=== PATIENT | male | born 1985 | race American Indian/Alaskan Native ===

== ENCOUNTER 2016-11-20 22:23 | Emergency (ER) | payer MEDICARE ==
[2016-11-20 22:44] VITALS: BP 119/85
[2016-11-21] MEDS ORDERED: NORCO 5/325 PO ONE (03:10)
[2016-11-21] MEDS ORDERED: DECADRON PO ONE (03:11)
--- NOTE | 2016-11-21 03:35 | Emergency Department Report ---
ED ENT HPI - General Chief complaint: Neck Pain/Injury Stated complaint: THROAT PAIN Time Seen by Provider: 11/21/16 03:09 Source: patient Mode of arrival: Ambulatory Limitations: No Limitations - History of Present Illness Initial comments: 31 y/o male comes in for complaint of sore throat difficulty swallowing since Thursday. Patient reports that since Thursday has not been able to swallow unable to sleep at night pain is getting worse pain does not radiate anywhere. Her chills nausea vomiting MD complaint: sore throat - Related Data Previous Rx's Medication Instructions Recorded Last Taken Type Naproxen [Naprosyn TAB] 500 mg PO BID #20 tablet 11/21/16 Unknown Rx methylPREDNISolone [Medrol Dose 8 mg PO QAM #7 tab.ds.pk 11/21/16 Unknown Rx Keanu] Allergies Allergy/AdvReac Type Severity Reaction Status Date / Time No Known Allergies Allergy Verified 07/02/15 16:46 ED Dental HPI - General Chief complaint: Neck Pain/Injury Stated complaint: THROAT PAIN Time Seen by Provider: 11/21/16 03:09 Source: patient Mode of arrival: Ambulatory Limitations: No Limitations - Related Data Previous Rx's Medication Instructions Recorded Last Taken Type Naproxen [Naprosyn TAB] 500 mg PO BID #20 tablet 11/21/16 Unknown Rx methylPREDNISolone [Medrol Dose 8 mg PO QAM #7 tab.ds.pk 11/21/16 Unknown Rx Keanu] Allergies Allergy/AdvReac Type Severity Reaction Status Date / Time No Known Allergies Allergy Verified 07/02/15 16:46 ED Review of Systems ROS: Stated complaint: THROAT PAIN Other details as noted in HPI Constitutional: denies: chills, fever ENT: throat pain Respiratory: denies: cough, shortness of breath Cardiovascular: denies: chest pain Gastrointestinal: denies: nausea, vomiting ED Past Medical Hx - Past Medical History Hx Hypertension: No Hx CVA: No Hx Heart Attack/AMI: No Hx Congestive Heart Failure: No Hx Diabetes: No Hx Deep Vein Thrombosis: No Hx Pulmonary Embolism: No Hx GERD: No Hx Liver Disease: No Hx Renal Disease: No Hx Sickle Cell Disease: No Hx Arthritis: No Hx Headaches / Migraines: No Hx Seizures: No Hx Asthma: No Hx Tuberculosis: No Hx Dementia: No Hx HIV: No Additional medical history: denies - Surgical History Hx Coronary Stent: No Hx Open Heart Surgery: No Hx Internal Defibrillator: No Hx Cholecystectomy: No Hx Appendectomy: No Additional Surgical History: denies - Social History Smoking Status: Current Every Day Smoker Substance Use Type: Alcohol - Medications Home Medications: Home Medications Medication Instructions Recorded Confirmed Last Taken Type Naproxen [Naprosyn TAB] 500 mg PO BID #20 tablet 11/21/16 Unknown Rx methylPREDNISolone [Medrol Dose 8 mg PO QAM #7 tab.ds.pk 11/21/16 Unknown Rx Keanu] ED Physical Exam - General Limitations: No Limitations General appearance: alert, in no apparent distress - Head Head exam: Present: atraumatic, normocephalic - Eye Eye exam: Present: normal appearance, PERRL, EOMI - ENT ENT exam: Present: mucous membranes moist - Expanded ENT Exam Expanded Mouth exam: Absent: trismus, muffled voice Teeth exam: Present: dental caries Throat exam: Positive: tonsillar erythema - Neck Neck exam: Present: normal inspection, tenderness - Respiratory Respiratory exam: Present: normal lung sounds bilaterally. Absent: respiratory distress, wheezes, rales - Cardiovascular Cardiovascular Exam: Present: regular rate, normal rhythm, normal heart sounds ED Course Vital Signs 11/20/16 22:33 Temperature 99.3 F Pulse Rate 69 Blood Pressure 119/85 O2 Sat by Pulse 100 Oximetry - Reevaluation(s) Reevaluation #1: 11/21/16 03:57 He reports he feels much better after having the Decadron and Cohutta. He feels he is able to go home. ED Medical Decision Making - Medical Decision Making Evaluated by this provider in fast track. Rapid strep sent out came back negative. We'll treat patient for tonsillitis. We'll put him on a Medrol Dosepak and Cohutta for pain. If symptoms get worse have him follow-up a primary care provider. Critical care attestation.: If time is entered above; I have spent that time in minutes in the direct care of this critically ill patient, excluding procedure time. ED Disposition Clinical Impression: Tonsillitis Disposition: DISCHARGED TO HOME OR SELFCARE Is pt being admited?: No Does the pt Need Aspirin: No Condition: Stable Instructions: Tonsillitis (ED) Additional Instructions: Complete his steroid pack use naproxen when necessary for pain symptoms get worse follow-up with her primary care provider or the emergency room Prescriptions: methylPREDNISolone [Medrol Dose Keanu] 8 mg PO QAM #7 tab.ds.pk Naproxen [Naprosyn TAB] 500 mg PO BID #20 tablet Referrals: RADHA FARIA MD [Primary Care Provider] - 3-5 Days Forms: Work/School Release Form(ED)
== END 2016-11-21 04:15 | disposition home or self-care (01) ==
LOC: ED 22:23
DX: J03.90 Acute tonsillitis, unspecified (principal); F17.200 Nicotine dependence, unspecified, uncomplicated
CPT/HCPCS: 87116; 87430; 99283; J8540

== ENCOUNTER 2016-11-25 12:24 | Emergency (ER) | payer MEDICARE ==
[2016-11-25] MEDS ORDERED: TYLENOL ONE (12:44)
[2016-11-25] MEDS: TYLENOL PO ONE (13:00)
[2016-11-25 13:48] LABS: Basophils % (Auto) 0.4 % (0.0-1.8); Hematocrit 37.4 % (35.5-45.6); Hemoglobin 12.2 gm/dl (11.8-15.2); Mean Corpuscular HGB Conc 33 % (32-34); Mean Corpuscular Hemoglobin 29 pg (28-32); Mean Corpuscular Volume 88 fl (84-94); Platelet Count 201 K/mm3 (140-440); Red Blood Count 4.24 M/mm3 (3.65-5.03); Red Cell Distribution Width 14.8 % (13.2-15.2); White Blood Count 14.2 K/mm3 (4.5-11.0)
[2016-11-25 13:59] LABS: INR 1.11 (0.87-1.13); Partial Thromboplastin Time 26.5 Sec. (24.2-36.6)
[2016-11-25] MEDS ORDERED: VANCOMYCIN PHARMACY TO DOSE IV SCH (14:00)
[2016-11-25] MEDS: CLEOCIN 900 MG/50 mL 900 MG/50 ML BAG IV ONE (14:08)
[2016-11-25] MEDS: NACL 0.9% 1000 ML 1,000 ML IV ONE (14:08)
--- NOTE | 2016-11-25 14:18 | XRay Report ---
AP CHEST: HISTORY: Fever, sepsis AP view of the chest demonstrates a normal mediastinal and cardiac contour with clear lungs and normal bony and soft tissue structures. IMPRESSION: Unremarkable AP chest.
[2016-11-25 14:19] LABS: Alanine Aminotransferase 29 units/L (7-56); Albumin 3.4 g/dL (3.9-5); Albumin/Globulin Ratio 0.9 %; Alkaline Phosphatase 63 units/L (35-129); Anion Gap 16 mmol/L; Bilirubin,Total 0.4 mg/dL (0.1-1.2); Blood Urea Nitrogen 8 mg/dL (9-20); Calcium 8.7 mg/dL (8.4-10.2); Carbon Dioxide 29 mmol/L (22-30); Chloride 94.5 mmol/L (98-107); Glucose 137 mg/dL (75-100); Potassium 3.6 mmol/L (3.6-5.0); Sodium 136 mmol/L (137-145); Total Protein 7.2 g/dL (6.3-8.2)
[2016-11-25 14:53] LABS: Bilirubin,Direct < 0.2 mg/dL (0-0.2)
[2016-11-25] MEDS: VANCOMYCIN VIAL 1,500 MG in NACL 0.9% 500 ML 500 ML IV ONE (15:07)
--- NOTE | 2016-11-25 15:14 | XRay Report ---
AP AND LATERAL SOFT TISSUES OF THE NECK: The contour of the upper airway appears within normal limits. The epiglottis is not enlarged. No prevertebral soft tissue swelling is apparent. No mass density or foreign body is evident. IMPRESSION: Normal study.
--- NOTE | 2016-11-25 15:43 | Cat Scan Report ---
CT NECK WITH CONTRAST: HISTORY: Swelling, pain, deep neck infection. TECHNIQUE: Helical CT following IV contrast. Sagittal and coronal reformatted images. FINDINGS: There is an irregular submental abscess measuring up to 5.4 x 3.3 cm in axial plane. Reactive submental lymph nodes measure up to 1.5 cm. The parotid and submandibular glands are normal. The carotid sheaths are intact. The thyroid gland is normal. The glottic structures are unremarkable. The airway is patent. Strap musculature is unremarkable. Hyoid bone and thyroid cartilage are intact. IMPRESSION: Submental abscess.
--- NOTE | 2016-11-25 16:46 | Emergency Department Report ---
ED General Adult HPI - General Chief complaint: Dental/Oral Stated complaint: NECK SWELLING Time Seen by Provider: 11/25/16 12:58 Source: patient Mode of arrival: Ambulatory Limitations: No Limitations - History of Present Illness Initial comments: Patient was apparently seen 2 days ago and given Decadron and describes Solu- Medrol for "tonsillitis". I do not believe he was treated with antibiotics. He was additionally noted to have dental caries. He can tell me that he's been having problems with his teeth for quite some time especially the left lower molar area. He states that since yesterday he has not been able to open his mouth to eat. He doesn't have any difficulty with his secretions. He denies any difficulty in breathing. He has swelling in the submandibular area of his neck. He does not complain of fever or chills. The patient presents to this facility and is noted to have temperature 102.4. -: Gradual, days(s) Severity scale (0 -10): 0 Quality: other (submental area and left lower molar) Consistency: intermittent Improves with: none Worsens with: none Associated Symptoms: other (can't open mouth) Treatments Prior to Arrival: none - Related Data Previous Rx's Medication Instructions Recorded Last Taken Type Naproxen [Naprosyn TAB] 500 mg PO BID #20 tablet 11/21/16 Unknown Rx methylPREDNISolone [Medrol Dose 8 mg PO QAM #7 tab.ds.pk 11/21/16 Unknown Rx Keanu] Allergies Allergy/AdvReac Type Severity Reaction Status Date / Time No Known Allergies Allergy Verified 07/02/15 16:46 ED Review of Systems ROS: Stated complaint: NECK SWELLING Other details as noted in HPI Constitutional: denies: chills, fever Eyes: denies: eye pain, eye discharge, vision change ENT: as per HPI, throat pain, dental pain. denies: ear pain Respiratory: denies: cough, shortness of breath, wheezing Cardiovascular: denies: chest pain, palpitations Endocrine: no symptoms reported Gastrointestinal: denies: abdominal pain, nausea, diarrhea Genitourinary: denies: urgency, dysuria Musculoskeletal: denies: back pain, joint swelling, arthralgia Skin: denies: rash, lesions Neurological: denies: headache, weakness, paresthesias Psychiatric: denies: anxiety, depression Hematological/Lymphatic: denies: easy bleeding, easy bruising ED Past Medical Hx - Past Medical History Previous Medical History?: Yes Hx Hypertension: No Hx CVA: No Hx Heart Attack/AMI: No Hx Congestive Heart Failure: No Hx Diabetes: No Hx Deep Vein Thrombosis: No Hx Pulmonary Embolism: No Hx GERD: No Hx Liver Disease: No Hx Renal Disease: No Hx Sickle Cell Disease: No Hx Arthritis: No Hx Headaches / Migraines: No Hx Seizures: No Hx Asthma: No Hx Tuberculosis: No Hx Dementia: No Hx HIV: No Additional medical history: denies - Surgical History Past Surgical History?: Yes Hx Coronary Stent: No Hx Open Heart Surgery: No Hx Internal Defibrillator: No Hx Cholecystectomy: No Hx Appendectomy: No Additional Surgical History: denies - Social History Smoking Status: Never Smoker - Medications Home Medications: Home Medications Medication Instructions Recorded Confirmed Last Taken Type Naproxen [Naprosyn TAB] 500 mg PO BID #20 tablet 11/21/16 Unknown Rx methylPREDNISolone [Medrol Dose 8 mg PO QAM #7 tab.ds.pk 11/21/16 Unknown Rx Keanu] ED Physical Exam - General Limitations: No Limitations General appearance: alert, in no apparent distress - Head Head exam: Present: atraumatic, normocephalic - Eye Eye exam: Present: normal appearance - ENT ENT exam: Present: other (partially edentulous and grossly carious dentition visualized in the left lower mandibular area). Absent: normal exam (finger breath mouth opening positive trismus handling secretions normally) - Neck Neck exam: Present: normal inspection - Respiratory Respiratory exam: Present: normal lung sounds bilaterally. Absent: respiratory distress - Cardiovascular Cardiovascular Exam: Present: regular rate, normal rhythm. Absent: systolic murmur, diastolic murmur, rubs, gallop - GI/Abdominal GI/Abdominal exam: Present: soft, normal bowel sounds. Absent: distended, tenderness, guarding, rebound, rigid - Rectal Rectal exam: Present: deferred - Extremities Exam Extremities exam: Present: normal inspection - Back Exam Back exam: Present: normal inspection - Neurological Exam Neurological exam: Present: alert, oriented X3, CN II-XII intact. Absent: motor sensory deficit - Psychiatric Psychiatric exam: Present: normal affect, normal mood - Skin Skin exam: Present: warm, dry, intact, normal color. Absent: rash ED Course Vital Signs 11/25/16 11/25/16 11/25/16 12:43 12:56 15:46 Temperature 102.4 F H 100.4 F H Pulse Rate 77 76 Respiratory 16 16 16 Rate Blood Pressure 159/90 121/76 [Left] O2 Sat by Pulse 99 98 99 Oximetry - Reevaluation(s) Reevaluation #1: The patient remained stable. He was treated with IV clindamycin and vancomycin. 11/25/16 16:53 ED Medical Decision Making - Lab Data Result diagrams: 11/25/16 13:27 11/25/16 13:27 Laboratory Results - last 24 hr 11/25/16 11/25/16 11/25/16 13:27 13:27 13:27 WBC 14.2 H RBC 4.24 Hgb 12.2 Hct 37.4 MCV 88 MCH 29 MCHC 33 RDW 14.8 Plt Count 201 Lymph % (Auto) 6.8 L [place] % (Auto) 13.1 H Eos % (Auto) 0.0 Baso % (Auto) 0.4 Lymph # 1.0 L [place] # 1.9 H Eos # 0.0 Baso # 0.1 Seg Neutrophils % 79.7 H Seg Neutrophils # 11.3 H PT 14.2 INR 1.11 APTT 26.5 Sodium Potassium Chloride Carbon Dioxide Anion Gap BUN Creatinine Estimated GFR BUN/Creatinine Ratio Glucose Lactic Acid 2.0 Calcium Total Bilirubin Direct Bilirubin AST ALT Alkaline Phosphatase Total Protein Albumin Albumin/Globulin Ratio 11/25/16 13:27 WBC RBC Hgb Hct MCV MCH MCHC RDW Plt Count Lymph % (Auto) J[place] % (Auto) Eos % (Auto) Baso % (Auto) Lymph # Jerauld # Eos # Baso # Seg Neutrophils % Seg Neutrophils # PT INR APTT Sodium 136 L Potassium 3.6 Chloride 94.5 L Carbon Dioxide 29 Anion Gap 16 BUN 8 L Creatinine 1.0 Estimated GFR > 60 BUN/Creatinine Ratio 8.00 Glucose 137 H Lactic Acid Calcium 8.7 Total Bilirubin 0.4 Direct Bilirubin < 0.2 AST 25 ALT 29 Alkaline Phosphatase 63 Total Protein 7.2 Albumin 3.4 L Albumin/Globulin Ratio 0.9 - Radiology Data Radiology results: report reviewed interpreted by me: History airway film was obtained. I spoke to ENT at [facility] concerning the transfer this patient as we do not have ENT surgical or oral surgical backup. A CT was then in progress. I called him back with the CT report which demonstrated a 5 x 3 cm submental abscess. The airway is stable. Dr. Kelsey was kind enough to accept this patient emergency department to emergency department transfer [facility]. Critical care attestation.: If time is entered above; I have spent that time in minutes in the direct care of this critically ill patient, excluding procedure time. ED Disposition Clinical Impression: Submental abscess Disposition: DC/TX ANOTHER TYPE HEALTHCARE Is pt being admited?: No Does the pt Need Aspirin: No Condition: Stable Referrals: PRIMARY CARE, [Primary Care Provider] - 3-5 Days Time of Disposition: 16:53
[2016-11-25] MEDS ORDERED: MORPHINE ONE (17:36)
[2016-11-25] MEDS ORDERED: ZOFRAN ONE (17:36)
[2016-11-25] MEDS: MORPHINE IV ONE (17:46)
[2016-11-25] MEDS: ZOFRAN IV ONE (17:46)
[2016-11-25 18:55] VITALS: BP 116/78
[2016-11-25] MEDS: MOTRIN PO ONE (19:18)
[2016-11-26] MEDS ORDERED: VANCOMYCIN/NS 1 GM/250 ML 1 GM/250 ML BAG IV SCH (05:00)
== END 2016-11-25 19:24 | disposition other institution (70) ==
LOC: ED 12:24
DX: L02.01 Cutaneous abscess of face (principal)
CPT/HCPCS: 36415; 70360; 70491; 71010; 80048; 80074; 82140; 85025; 85610; 85730; 87040; 96365; 96366; 96367; 96375; 99285; J2270; J2405; J3370; J7030; J7040; Q9967

== ENCOUNTER 2018-01-05 12:39 | Emergency (ER) | payer MEDICARE ==
[2018-01-05 13:38] LABS: Basophils % (Auto) 0.4 % (0.0-1.8); Eosinophils % (Auto) 0.1 % (0.0-4.3); Hematocrit 42.9 % (35.5-45.6); Hemoglobin 14.3 gm/dl (11.8-15.2); Lymphocytes # (Auto) 1.2 K/mm3 (1.2-5.4); Lymphocytes % (Auto) 18.3 % (13.4-35.0); Mean Corpuscular HGB Conc 33 % (32-34); Mean Corpuscular Hemoglobin 30 pg (28-32); Mean Corpuscular Volume 89 fl (84-94); Monocytes # (Auto) 0.7 K/mm3 (0.0-0.8); Monocytes % (Auto) 10.6 % (0.0-7.3); Platelet Count 151 K/mm3 (140-440); Red Blood Count 4.81 M/mm3 (3.65-5.03); Red Cell Distribution Width 15.7 % (13.2-15.2)
--- NOTE | 2018-01-05 13:45 | Emergency Department Report ---
HPI - General Time Seen by Provider: 01/05/18 12:47 - HPI HPI: 32-year-old -[place] male presents to the emergency department via EMS from his [facility] with some suicidal ideations and for a mental health evaluation. The patient admits to history of bipolar disorder but I am unsure whether or not the patient is taking his medications. He says that people are hiding the medications from him but then also says "sometimes they are and sometimes they're not." The patient says "I want to hurt myself because there are people that are trying to hurt me." He describes these people as the other residents of the [facility]. He says that sometimes he will find that they are stealing things from his room. The patient admits that he has a temper problem. He says that people are taking advantage of his kindness and "sending me over the edge." He admits to intermittent auditory and visual hallucinations. The patient's girlfriend later came to the hospital and gave some further information. It turns out that the patient does not live that any type of usp but has lived with the girlfriend and her family over the past 3 years. She says that the patient began having an argument with his girlfriends son as they were "wearing his boots." Patient apparently began having a temper tantrum. He then started making threats towards the girlfriends son and then called EMS on himself. ED Past Medical Hx - Past Medical History Previous Medical History?: Yes Hx Hypertension: No Hx CVA: No Hx Heart Attack/AMI: No Hx Congestive Heart Failure: No Hx Diabetes: No Hx Deep Vein Thrombosis: No Hx Pulmonary Embolism: No Hx GERD: No Hx Liver Disease: No Hx Renal Disease: No Hx Sickle Cell Disease: No Hx Arthritis: No Hx Headaches / Migraines: No Hx Seizures: No Hx Asthma: No Hx Tuberculosis: No Hx Dementia: No Hx HIV: No Additional medical history: Psych hx. - Surgical History Hx Coronary Stent: No Hx Open Heart Surgery: No Hx Internal Defibrillator: No Hx Cholecystectomy: No Hx Appendectomy: No Additional Surgical History: denies - Social History Smoking Status: Current Some Day Smoker Substance Use Type: None - Medications Home Medications: Home Medications Medication Instructions Recorded Confirmed Last Taken Type Naproxen [Naprosyn TAB] 500 mg PO BID #20 tablet 11/21/16 Unknown Rx methylPREDNISolone [Medrol Dose 8 mg PO QAM #7 tab.ds.pk 11/21/16 Unknown Rx Keanu] ED Review of Systems ROS: Stated complaint: MH EVAL Other details as noted in HPI Comment: All other systems reviewed and negative Constitutional: denies: chills, fever Eyes: denies: eye pain, eye discharge, vision change ENT: denies: ear pain, throat pain Respiratory: denies: cough, shortness of breath, wheezing Cardiovascular: denies: chest pain, palpitations Gastrointestinal: denies: abdominal pain, nausea, diarrhea Genitourinary: denies: urgency, dysuria Musculoskeletal: denies: back pain, joint swelling, arthralgia Skin: denies: rash, lesions Neurological: denies: headache, weakness, paresthesias Psychiatric: auditory hallucinations, visual hallucinations, suicidal thoughts Physical Exam - Physical Exam Vital Signs: Vital Signs 01/05/18 12:40 Temperature 97.9 F Pulse Rate 60 Respiratory 20 Rate Blood Pressure 122/83 Blood Pressure 122/83 [Right] O2 Sat by Pulse 97 Oximetry Physical Exam: GENERAL: The patient is well-developed well-nourished. HENT: Normocephalic. Atraumatic. Patient has moist mucous membranes. EYES: Extraocular motions are intact. Pupils equal reactive to light bilaterally. NECK: Supple. Trachea is midline. CHEST/LUNGS: Clear to auscultation. There is no respiratory distress noted. HEART/CARDIOVASCULAR: Regular. There is no tachycardia. There is no murmur. ABDOMEN: Abdomen is soft, nontender. Patient has normal bowel sounds. There is no abdominal distention. SKIN: Skin is warm and dry. NEURO: The patient is awake, alert. The patient is cooperative. The patient has no focal neurologic deficits. The patient has normal speech. MUSCULOSKELETAL: There is no tenderness or deformity. There is no limitation range of motion. There is no evidence of acute injury. PSYCH: The patient has some pressured speech. At times he is tearful. ED Course Vital Signs 01/05/18 12:40 Temperature 97.9 F Pulse Rate 60 Respiratory 20 Rate Blood Pressure 122/83 Blood Pressure 122/83 [Right] O2 Sat by Pulse 97 Oximetry ED Medical Decision Making - Lab Data Result diagrams: 01/05/18 13:22 01/05/18 13:22 - Medical Decision Making 32-year-old male presents to the emergency department with what appears to be some suicidal ideations and acute psychosis. It is unknown whether patient truly has a diagnosis of bipolar disorder or if this is some sequela of some type of developmental delay. However the patient actively admits to some suicidal ideations, intermittent hallucinations. The girlfriend later came by and expressed that the patient had been making some threats towards others. For all these reasons patient has been made a 1013 and will require inpatient psychiatric treatment. The labs thus far are unremarkable. We do not yet have a urinalysis but I do not feel that any results from a urinalysis or urine drug screen would alter the plan for inpatient psychiatric admission. He does not appear acutely intoxicated. If the patient has a urinary tract infection, he will be written for antibiotics. Otherwise I feel the patient is medically cleared for psychiatric placement. - Differential Diagnosis Bipolar, schizophrenia, schizoaffective Critical Care Time: No Critical care attestation.: If time is entered above; I have spent that time in minutes in the direct care of this critically ill patient, excluding procedure time. ED Disposition Clinical Impression: Suicidal ideations, Acute psychosis Disposition: [id number]/TX-[id number] PSY HOSP/PSY UNIT Is pt being admited?: No Condition: Stable Time of Disposition: 14:53
[2018-01-05 13:57] LABS: BUN/Creatinine Ratio 12; Blood Urea Nitrogen 13 mg/dL (9-20); Hemolysis Index 5
[2018-01-05] MEDS ORDERED: TYLENOL PO PRN (16:35)
[2018-01-05 17:20] LABS: Bilirubin,Urine NEG (Negative); Blood,Urine NEG (Negative); Color,Urine Yellow (Yellow); Mucus,Urine 2+ /HPF; Protein,Urine <15 mg/dL mg/dL (Negative); Urobilinogen,Urine < 2.0 mg/dL (<2.0)
[2018-01-05 17:32] LABS: Amphetamine Screen,Urine PRESUMPTIVE NEGATIVE; Benzodiazepines Screen,Urine PRESUMPTIVE NEGATIVE; Cocaine Screen,Urine PRESUMPTIVE NEGATIVE; Methadone Screen,Urine PRESUMPTIVE NEGATIVE; Opiate Screen,Urine PRESUMPTIVE NEGATIVE
[2018-01-05 17:43] LABS: Cannabinoid Screen,Urine PRESUMPTIVE POSITIVE
[2018-01-05] MEDS ORDERED: ROCEPHIN IM ONE (18:09)
[2018-01-05] MEDS ORDERED: ZITHROMAX PO ONE (18:09)
[2018-01-05] MEDS ORDERED: XYLOCAINE 1% MPF 5 mL INFILTRATI ONE (18:09)
[2018-01-05 19:56] VITALS: BP 105/75
[2018-01-05] MEDS ORDERED: BACTRIM DS PO SCH (22:00)
== END 2018-01-05 19:54 ==
LOC: ED 12:39
DX: F23 Brief psychotic disorder (principal); F17.200 Nicotine dependence, unspecified, uncomplicated; Z79.899 Other long term (current) drug therapy
CPT/HCPCS: 36415; 80048; 80307; 81001; 85025; 96372; 99285; G0480; J0696; 80320

== ENCOUNTER 2019-03-13 22:58 | Emergency (ER) | payer MEDICARE ==
[2019-03-13 23:38] LABS: Basophils % (Auto) 0.3 % (0.0-1.8); Eosinophils # (Auto) 0.2 K/mm3 (0.0-0.4); Eosinophils % (Auto) 2.5 % (0.0-4.3); Hematocrit 39.1 % (35.5-45.6); Hemoglobin 13.3 gm/dl (11.8-15.2); Lymphocytes # (Auto) 2.2 K/mm3 (1.2-5.4); Lymphocytes % (Auto) 34.3 % (13.4-35.0); Mean Corpuscular HGB Conc 34 % (32-34); Mean Corpuscular Volume 91 fl (84-94); Monocytes # (Auto) 0.6 K/mm3 (0.0-0.8); Monocytes % (Auto) 10.2 % (0.0-7.3); Platelet Count 160 K/mm3 (140-440); Red Blood Count 4.31 M/mm3 (3.65-5.03); Red Cell Distribution Width 15.8 % (13.2-15.2)
[2019-03-14 00:01] LABS: Alanine Aminotransferase 16 units/L (7-56); Albumin 3.5 g/dL (3.9-5); BUN/Creatinine Ratio 11; Blood Urea Nitrogen 13 mg/dL (9-20); Calcium 8.7 mg/dL (8.4-10.2); Hemolysis Index 3
[2019-03-14 00:16] LABS: Bilirubin,Urine NEG (Negative); Blood,Urine NEG (Negative); Calcium Oxalate Crystals,Urine 1+; Color,Urine Yellow (Yellow); Mucus,Urine 3+ /HPF; Protein,Urine <15 mg/dL mg/dL (Negative); WBC,Urine < 1.0 /HPF (0.0-6.0)
[2019-03-14] MEDS ORDERED: LEVSIN SL SL ONE (02:07)
[2019-03-14] MEDS ORDERED: ZOFRAN ODT PO STA (02:07)
--- NOTE | 2019-03-14 03:09 | XRay Report ---
PROCEDURE: XR CHEST ROUTINE 2V TECHNIQUE: PA and lateral chest radiographs were obtained. HISTORY: cough COMPARISONS: None. FINDINGS: Heart: Normal. Mediastinum/Vessels: Normal. Lungs/Pleural space: Normal. Bony thorax: No acute osseous abnormality. IMPRESSION: Normal examination. This document is electronically signed by Lucy Silva DO., Mar 14 2019 03:07:46 AM ET
[2019-03-14 03:27] LABS: Bacteria,Urine 1+ /HPF (Negative); Bilirubin,Urine NEG (Negative); Blood,Urine NEG (Negative); Calcium Oxalate Crystals,Urine 1+; Color,Urine Yellow (Yellow); Mucus,Urine 3+ /HPF; Protein,Urine <15 mg/dL mg/dL (Negative); Urobilinogen,Urine < 2.0 mg/dL (<2.0)
--- NOTE | 2019-03-14 04:22 | Cat Scan Report ---
PROCEDURE: CT ABDOMEN PELVIS W CON TECHNIQUE: Computerized axial tomography of the abdomen and pelvis was performed after the IV inject ion of iodinated nonionic contrast. CT DOSE LENGTH PRODUCT: mGycm HISTORY: Lower ABD Pain COMPARISONS: None . FINDINGS: The study is limited given the small amount of body fat and lack of oral contrast. The lung bases are clear. Pleural fluid is not seen. The liver, gallbladder, biliary tree, pancreas, spleen, and adrenal glands appear normal. The kidneys enhance normally. There is no evidence of hydronephrosis. The abdominal aorta is normal in caliber. The portal vein enhances normally. The bowel loops are not distended. The appendix is not seen. There is a small amount of free fluid in the posterior aspect of the pelvis. Also in the pelvis is generalized mucosal prominence of the rect um with effacement of the perirectal fat. Proctitis cannot be excluded. There is no evidence of adeno julio césar. The skeletal structures reveal a thoracolumbar dextroscoliosis. . IMPRESSION: Limited study given the lack of body fat and lack of oral contrast. Generalized mucosal prominence in the rectum with effacement of the perirectal fat. Proctitis cannot be excluded. No evidence of bowel obstruction or ileus otherwise. Small amount of free fluid in the posterior aspect of the pelvis. Appendix is not seen. If there is concern about appendicitis right lower quadrant sonography might be helpful for further evaluation. This document is electronically signed by Tung Grossman MD., Mar 14 2019 04:20:05 AM ET
--- NOTE | 2019-03-14 05:03 | Emergency Department Report ---
ED Abdominal Pain HPI - General Chief Complaint: Abdominal Pain Stated Complaint: ABDOMINAL PAIN Time Seen by Provider: 03/14/19 02:05 Source: patient, family Mode of arrival: Ambulatory Limitations: No Limitations - History of Present Illness MD Complaint: abdominal pain -: days(s) (1.5) Location: periumbilical, R flank Radiation: epigastric Quality: aching, dull Consistency: constant Improves With: nothing Worsens With: nothing Associated Symptoms: denies other symptoms. denies: vomiting, diarrhea, constipation, hematemesis, hematochezia, hematuria, anorexia, syncope - Related Data Previous Rx's Medication Instructions Recorded Last Taken Type Naproxen [Naprosyn TAB] 500 mg PO BID #20 tablet 11/21/16 Unknown Rx methylPREDNISolone [Medrol Dose 8 mg PO QAM #7 tab.ds.pk 11/21/16 Unknown Rx Keanu] ALBUTEROL Inhaler(NF) [VENTOLIN 2 puff IH Q4HR PRN #1 inha 10/26/18 Unknown Rx Inhaler(NF)] Ciprofloxacin HCl [Ciprofloxacin 500 mg PO Q12HR #28 tab 03/14/19 Unknown Rx TAB] Hyoscyamine Subl [Levsin Sl 0.125 0.125 mg SL Q6HR PRN #20 tab 03/14/19 Unknown Rx TAB] metroNIDAZOLE [Flagyl] 500 mg PO BID #28 tab 03/14/19 Unknown Rx Allergies Allergy/AdvReac Type Severity Reaction Status Date / Time No Known Allergies Allergy Verified 07/02/15 16:46 ED Review of Systems ROS: Stated complaint: ABDOMINAL PAIN Other details as noted in HPI Constitutional: denies: chills, fever Eyes: denies: eye pain, eye discharge, vision change ENT: denies: ear pain, throat pain Respiratory: denies: cough, shortness of breath, wheezing Cardiovascular: denies: chest pain, palpitations Endocrine: no symptoms reported Gastrointestinal: abdominal pain, nausea. denies: diarrhea Genitourinary: denies: urgency, dysuria Musculoskeletal: denies: back pain, joint swelling, arthralgia Skin: denies: rash, lesions Neurological: denies: headache, weakness, paresthesias Psychiatric: denies: anxiety, depression Hematological/Lymphatic: denies: easy bleeding, easy bruising ED Past Medical Hx - Past Medical History Hx Hypertension: No Hx CVA: No Hx Heart Attack/AMI: No Hx Congestive Heart Failure: No Hx Diabetes: No Hx Deep Vein Thrombosis: No Hx Pulmonary Embolism: No Hx GERD: No Hx Liver Disease: No Hx Renal Disease: No Hx Sickle Cell Disease: No Hx Arthritis: No Hx Headaches / Migraines: No Hx Seizures: No Hx Psychiatric Treatment: Yes (bipolar) Hx Asthma: No Hx Tuberculosis: No Hx Dementia: No Hx HIV: No Additional medical history: Psych hx. - Surgical History Hx Coronary Stent: No Hx Open Heart Surgery: No Hx Internal Defibrillator: No Hx Cholecystectomy: No Hx Appendectomy: No Additional Surgical History: denies - Social History Smoking Status: Never Smoker Substance Use Type: None - Medications Home Medications: Home Medications Medication Instructions Recorded Confirmed Last Taken Type Naproxen [Naprosyn TAB] 500 mg PO BID #20 tablet 11/21/16 Unknown Rx methylPREDNISolone [Medrol Dose 8 mg PO QAM #7 tab.ds.pk 11/21/16 Unknown Rx Keanu] ALBUTEROL Inhaler(NF) [VENTOLIN 2 puff IH Q4HR PRN #1 inha 10/26/18 Unknown Rx Inhaler(NF)] Ciprofloxacin HCl [Ciprofloxacin 500 mg PO Q12HR #28 tab 03/14/19 Unknown Rx TAB] Hyoscyamine Subl [Levsin Sl 0.125 0.125 mg SL Q6HR PRN #20 tab 03/14/19 Unknown Rx TAB] metroNIDAZOLE [Flagyl] 500 mg PO BID #28 tab 03/14/19 Unknown Rx ED Physical Exam - General Limitations: No Limitations General appearance: alert, in no apparent distress - Head Head exam: Present: atraumatic, normocephalic - Eye Eye exam: Present: normal appearance - ENT ENT exam: Present: mucous membranes moist - Neck Neck exam: Present: normal inspection - Respiratory Respiratory exam: Present: normal lung sounds bilaterally. Absent: respiratory distress - Cardiovascular Cardiovascular Exam: Present: regular rate, normal rhythm. Absent: systolic murmur, diastolic murmur, rubs, gallop - GI/Abdominal GI/Abdominal exam: Present: soft, tenderness (more diffusely spread), normal bowel sounds. Absent: guarding, rebound, hyperactive bowel sounds, organomegaly, mass, pulsatile mass - Rectal Rectal exam: Present: deferred - Extremities Exam Extremities exam: Present: normal inspection, full ROM, normal capillary refill - Back Exam Back exam: Present: normal inspection. Absent: CVA tenderness (R), CVA tenderness (L), paraspinal tenderness, vertebral tenderness - Neurological Exam Neurological exam: Present: alert, oriented X3 - Psychiatric Psychiatric exam: Present: normal affect, normal mood - Skin Skin exam: Present: warm, dry, intact, normal color. Absent: rash ED Course Vital Signs 03/13/19 03/13/19 23:04 23:10 Temperature 97.9 F 97.9 F Pulse Rate 58 L 58 L Respiratory 18 16 Rate Blood Pressure 112/73 Blood Pressure 112/73 [Left] O2 Sat by Pulse 99 99 Oximetry ED Medical Decision Making - Lab Data Result diagrams: 03/13/19 23:19 03/13/19 23:19 Critical care attestation.: If time is entered above; I have spent that time in minutes in the direct care of this critically ill patient, excluding procedure time. ED Disposition Clinical Impression: Vomiting, Abdominal pain Disposition: DC-01 TO HOME OR SELFCARE Is pt being admited?: No Does the pt Need Aspirin: No Condition: Stable Instructions: Proctitis (ED), Acute Abdominal Pain (ED) Prescriptions: Ciprofloxacin HCl [Ciprofloxacin TAB] 500 mg PO Q12HR #28 tab metroNIDAZOLE [Flagyl] 500 mg PO BID #28 tab Hyoscyamine Subl [Levsin Sl 0.125 TAB] 0.125 mg SL Q6HR PRN #20 tab PRN Reason: abdominal cramps and spasms Referrals: LUCILA ZAMBRANO MD [Primary Care Provider] - 3-5 Days
[2019-03-14 05:57] VITALS: BP 110/73
== END 2019-03-14 05:56 | disposition home or self-care (01) ==
LOC: ED 22:58
DX: R10.33 Periumbilical pain (principal); R11.2 Nausea with vomiting, unspecified
CPT/HCPCS: 36415; 71046; 74177; 80053; 81001; 83690; 85025; 99285; Q9967; Q0162

== ENCOUNTER 2019-06-10 14:24 | Emergency (ER) | payer MEDICARE ==
--- NOTE | 2019-06-10 14:39 | Event Note ---
ED Screening Note ED Screening Note: ra lac self inflicted "because wanted away from people from [place]" pos SI no HI pos aud hallucinations not taking psych meds has bottle filled in February - with 2 pills in it yelling and aggressive with security in front This initial assessment/diagnostic orders/clinical plan/treatment(s) is/are subject to change based on patients health status, clinical progression and re- assessment by fellow clinical providers in the ED. Further treatment and workup at subsequent clinical providers discretion. Patient/guardian urged not to elope from the ED as their condition may be serious if not clinically assessed and managed. Initial orders include: mhe eval lac repair
[2019-06-10 14:59] LABS: Basophils % (Auto) 0.6 % (0.0-1.8); Eosinophils % (Auto) 0.4 % (0.0-4.3); Hematocrit 40.2 % (35.5-45.6); Hemoglobin 13.6 gm/dl (11.8-15.2); Lymphocytes # (Auto) 1.3 K/mm3 (1.2-5.4); Lymphocytes % (Auto) 23.3 % (13.4-35.0); Mean Corpuscular HGB Conc 34 % (32-34); Mean Corpuscular Volume 90 fl (84-94); Monocytes # (Auto) 0.5 K/mm3 (0.0-0.8); Monocytes % (Auto) 9.6 % (0.0-7.3); Platelet Count 148 K/mm3 (140-440); Red Blood Count 4.46 M/mm3 (3.65-5.03); Red Cell Distribution Width 15.9 % (13.2-15.2)
[2019-06-10] MEDS ORDERED: NACL 0.9% IR ONE (15:00)
[2019-06-10 15:21] LABS: Alanine Aminotransferase 25 units/L (7-56); Albumin 4.2 g/dL (3.9-5); BUN/Creatinine Ratio 16; Blood Urea Nitrogen 21 mg/dL (9-20); Calcium 9.2 mg/dL (8.4-10.2); Hemolysis Index 7
[2019-06-10] MEDS ORDERED: XYLOCAINE 1% MPF 5 mL INFILTRATI ONE (17:31)
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
--- NOTE | 2019-06-10 18:06 | XRay Report ---
RIGHT FOREARM 2 VIEWS. INDICATION / CLINICAL INFORMATION: laceration from glass COMPARISON: None available. FINDINGS: BONES / JOINT(S): No acute fracture or subluxation. No significant arthritis. SOFT TISSUES: Soft tissue injury along the anterior aspect of the mid forearm. Several small radiopaq ue foreign bodies are seen just below the skin surface with the largest measuring 4 mm. ADDITIONAL FINDINGS: None. Signer Name: Zenon Becker MD Signed: 06/10/2019 6:02 PM Workstation Name: [id number]
[2019-06-10] MEDS ORDERED: NACL 0.9% 500 ML IR ONE (18:51)
[2019-06-10 20:24] LABS: Amphetamine Screen,Urine PRESUMPTIVE NEGATIVE; Benzodiazepines Screen,Urine PRESUMPTIVE NEGATIVE; Cocaine Screen,Urine PRESUMPTIVE NEGATIVE; Methadone Screen,Urine PRESUMPTIVE NEGATIVE; Opiate Screen,Urine PRESUMPTIVE NEGATIVE
[2019-06-10 20:29] LABS: Bacteria,Urine 1+ /HPF (Negative); Bilirubin,Urine NEG (Negative); Blood,Urine NEG (Negative); Color,Urine Yellow (Yellow); Mucus,Urine 3+ /HPF; Protein,Urine <15 mg/dL mg/dL (Negative)
[2019-06-10 20:49] LABS: Cannabinoid Screen,Urine PRESUMPTIVE POSITIVE
[2019-06-10] MEDS ORDERED: BACTRIM DS PO SCH (23:00)
[2019-06-11 02:34] VITALS: BP 105/75
== END 2019-06-11 03:00 ==
LOC: ED 14:24 → EEVIPCON 14:24 → ED 06-11 03:00
DX: S51.811A Laceration without foreign body of right forearm, initial encounter (principal); F31.9 Bipolar disorder, unspecified; F17.200 Nicotine dependence, unspecified, uncomplicated; F12.90 Cannabis use, unspecified, uncomplicated; Z79.899 Other long term (current) drug therapy; X78.0XXA Intentional self-harm by sharp glass, initial encounter; Y93.89 Activity, other specified; Y92.89 Other specified places as the place of occurrence of the external cause; Y99.8 Other external cause status
CPT/HCPCS: 36415; 80053; 80307; 80320; 81001; 85025; 99285; G0480

== ENCOUNTER 2020-07-14 01:48 | Emergency (ER) | payer SELFPAY ==
[2020-07-14 01:55] VITALS: BP 114/74
[2020-07-14] MEDS ORDERED: DIPHtheria,PERTUSSIS(ACELL),TETANUS VACCINE/PF 0.5 ML VIAL IM ONE (03:51)
[2020-07-14] MEDS ORDERED: IBUPROFEN 800 MG TAB PO ONE (03:52)
--- NOTE | 2020-07-14 03:55 | Emergency Department Report ---
ED General Adult HPI - General Chief complaint: Extremity Injury, Lower Stated complaint: RIGHT GREAT TOE INJURY Time Seen by Provider: 07/14/20 03:17 Source: patient Mode of arrival: Ambulatory Limitations: No Limitations - History of Present Illness Initial comments: 35-year-old -Spanish male patient with history of bipolar disorder presents with complaints of sudden onset of right foot/great toe pain x last night. Patient states a few hours after his pain began, his toenail fell off of his big toe. He denies any fever/chills/sweats, numbness/tingling/weakness in his foot, history of gout/cancer, or other chronic medical conditions. He rates his current pain as a 7/10 in severity and states it worsens with ambulation. Patient is unsure of his last tetanus vaccination. -: Sudden - Related Data Previous Rx's Medication Instructions Recorded Last Taken Type Naproxen [Naprosyn TAB] 500 mg PO BID #20 tablet 11/21/16 Unknown Rx methylPREDNISolone [Medrol Dose 8 mg PO QAM #7 tab.ds.pk 11/21/16 Unknown Rx Keanu] ALBUTEROL Inhaler(NF) [VENTOLIN 2 puff IH Q4HR PRN #1 inha 10/26/18 Unknown Rx Inhaler(NF)] Ciprofloxacin HCl [Ciprofloxacin 500 mg PO Q12HR #28 tab 03/14/19 Unknown Rx TAB] Hyoscyamine Subl [Levsin Sl 0.125 0.125 mg SL Q6HR PRN #20 tab 03/14/19 Unknown Rx TAB] metroNIDAZOLE [Flagyl] 500 mg PO BID #28 tab 03/14/19 Unknown Rx Sulfamethoxazole/Trimethoprim 1 each PO BID #14 tablet 06/10/19 Unknown Rx [Bactrim DS TAB] Diclofenac Sodium 75 mg PO BID PRN #14 tablet. 07/14/20 Unknown Rx Mupirocin [Bactroban 2% OINT] 1 applic TP TID 7 Days #1 tube 07/14/20 Unknown Rx cephALEXin [Keflex] 500 mg PO Q8HR 7 Days #21 cap 07/14/20 Unknown Rx Allergies Allergy/AdvReac Type Severity Reaction Status Date / Time No Known Allergies Allergy Verified 07/02/15 16:46 ED Review of Systems ROS: Stated complaint: RIGHT GREAT TOE INJURY Other details as noted in HPI Constitutional: denies: chills, diaphoresis, fever, malaise, weakness Respiratory: denies: SOB with exertion Gastrointestinal: denies: nausea, vomiting Musculoskeletal: arthralgia. denies: back pain Skin: denies: rash, lesions, change in color Neurological: denies: numbness, paresthesias Hematological/Lymphatic: denies: swollen glands ED Past Medical Hx - Past Medical History Previous Medical History?: Yes Hx Hypertension: No Hx CVA: No Hx Heart Attack/AMI: No Hx Congestive Heart Failure: No Hx Diabetes: No Hx Deep Vein Thrombosis: No Hx Pulmonary Embolism: No Hx GERD: No Hx Liver Disease: No Hx Renal Disease: No Hx Sickle Cell Disease: No Hx Arthritis: No Hx Headaches / Migraines: No Hx Seizures: No Hx Psychiatric Treatment: Yes (bipolar) Hx Asthma: No Hx Tuberculosis: No Hx Dementia: No Hx HIV: No Additional medical history: Psych hx. - Surgical History Past Surgical History?: Yes Hx Coronary Stent: No Hx Open Heart Surgery: No Hx Internal Defibrillator: No Hx Cholecystectomy: No Hx Appendectomy: No Additional Surgical History: denies - Social History Smoking Status: Current Every Day Smoker Substance Use Type: Alcohol - Medications Home Medications: Home Medications Medication Instructions Recorded Confirmed Last Taken Type Naproxen [Naprosyn TAB] 500 mg PO BID #20 tablet 11/21/16 Unknown Rx methylPREDNISolone [Medrol Dose 8 mg PO QAM #7 tab.ds.pk 11/21/16 Unknown Rx Keanu] ALBUTEROL Inhaler(NF) [VENTOLIN 2 puff IH Q4HR PRN #1 inha 10/26/18 Unknown Rx Inhaler(NF)] Ciprofloxacin HCl [Ciprofloxacin 500 mg PO Q12HR #28 tab 03/14/19 Unknown Rx TAB] Hyoscyamine Subl [Levsin Sl 0.125 0.125 mg SL Q6HR PRN #20 tab 03/14/19 Unknown Rx TAB] metroNIDAZOLE [Flagyl] 500 mg PO BID #28 tab 03/14/19 Unknown Rx Sulfamethoxazole/Trimethoprim 1 each PO BID #14 tablet 06/10/19 Unknown Rx [Bactrim DS TAB] Diclofenac Sodium 75 mg PO BID PRN #14 tablet 07/14/20 Unknown Rx Mupirocin [Bactroban 2% OINT] 1 applic TP TID 7 Days #1 tube 07/14/20 Unknown Rx cephALEXin [Keflex] 500 mg PO Q8HR 7 Days #21 cap 07/14/20 Unknown Rx ED Physical Exam - General Limitations: No Limitations General appearance: alert, in no apparent distress - Head Head exam: Present: atraumatic, normocephalic - Eye Eye exam: Present: normal appearance. Absent: scleral icterus - Respiratory Respiratory exam: Present: normal lung sounds bilaterally. Absent: respiratory distress - Cardiovascular Cardiovascular Exam: Present: regular rate, normal rhythm - Extremities Exam Extremities exam: Present: normal inspection - Expanded Lower Extremity Exam Right Foot/Toe exam: Present: full ROM, tenderness (Noted to first MCP joint and first toe), swelling (Minimal swelling noted to the great toe), erythema (Minimal without cellulitic changes noted), nail avulsion. Absent: deformity Neuro vascular tendon exam: Present: no vascular compromise. Absent: pulse deficit, sensory deficit, extremity cold to touch - Back Exam Back exam: Present: normal inspection - Neurological Exam Neurological exam: Present: alert, oriented X3 - Psychiatric Psychiatric exam: Present: normal affect, normal mood - Skin Skin exam: Present: warm, dry, intact, normal color. Absent: rash, cyanosis, erythema, ecchymosis ED Course Vital Signs 07/14/20 01:52 Temperature 98.2 F Pulse Rate 69 Respiratory 18 Rate Blood Pressure 114/74 O2 Sat by Pulse 100 Oximetry ED Medical Decision Making - Radiology Data Radiology results: report reviewed RIGHT FOOT 3 VIEW INDICATION / CLINICAL INFORMATION: distal foot/great toe pain. COMPARISON: None available. FINDINGS: BONES/JOINT(S): No acute fracture or subluxation. No significant degenerative changes. SOFT TISSUES: No significant abnormality. ADDITIONAL FINDINGS: None. - Medical Decision Making 35-year-old -Spanish male patient with history of bipolar disorder presents with complaints of sudden onset of right foot/great toe pain x last ni ght. Patient states a few hours after his pain began, his toenail fell off of his big toe. He denies any fever/chills/sweats, numbness/tingling/weakness in his foot, history of gout/cancer, or other chronic medical conditions. He rates his current pain as a 7/10 in severity and states it worsens with ambulation. Patient is unsure of his last tetanus vaccination. On exam, right great toenail avulsion is noted without any signs of cellulitis or abscess. There is tenderness to palpation over the first MCP joint, however no swelling or significant erythema is noted to correlate with gout. X-ray is negative for any acute abnormalities. Tetanus vaccination updated. Prescription for Keflex given to prevent infection in toe. Will treat pain with diclofenac. Dressing placed on toe along with bacitracin. Recommend follow-up with PCP in 2 days. Vitals are normal, patient is well-appearing, and stable for discharge home. Strict return precautions were discussed in detail with patient who verbalized understanding Critical care attestation.: If time is entered above; I have spent that time in minutes in the direct care of this critically ill patient, excluding procedure time. ED Disposition Clinical Impression: Nail avulsion of toe Qualifiers: Encounter type: initial encounter Qualified Code(s): S91.209A - Unspecified open wound of unspecified toe(s) with damage to nail, initial encounter Acute foot pain Qualifiers: Laterality: right Qualified Code(s): M79.671 - Pain in right foot Disposition: DC- TO HOME OR SELFCARE Is pt being admited?: No Condition: Stable Instructions: Arthralgia (ED), Toenail/Fingernail Removal (ED) Prescriptions: Mupirocin [Bactroban 2% OINT] 1 applic TP TID 7 Days #1 tube Diclofenac Sodium 75 mg PO BID PRN #[address] FROST Reason: Pain cephALEXin [Keflex] 500 mg PO Q8HR 7 Days #21 cap Referrals: PRIMARY CARE, [Primary Care Provider] - 2-3 Days
--- NOTE | 2020-07-14 04:29 | XRay Report ---
RIGHT FOOT 3 VIEW INDICATION / CLINICAL INFORMATION: distal foot/great toe pain. COMPARISON: None available. FINDINGS: BONES/JOINT(S): No acute fracture or subluxation. No significant degenerative changes. SOFT TISSUES: No significant abnormality. ADDITIONAL FINDINGS: None. Signer Name: Ajith Ramos MD Signed: 07/14/2020 4:25 AM Workstation Name: [id number]
== END 2020-07-14 05:15 | disposition home or self-care (01) ==
LOC: ED 01:48
DX: S91.209A Unspecified open wound of unspecified toe(s) with damage to nail, initial encounter (principal); M79.671 Pain in right foot; F31.9 Bipolar disorder, unspecified; F17.200 Nicotine dependence, unspecified, uncomplicated; Z79.899 Other long term (current) drug therapy; X58.XXXA Exposure to other specified factors, initial encounter; Y93.89 Activity, other specified; Y92.89 Other specified places as the place of occurrence of the external cause; Y99.8 Other external cause status
CPT/HCPCS: 90471; 90715

== ENCOUNTER 2020-12-25 10:26 | Emergency (ER) | payer MEDICARE ==
--- NOTE | 2020-12-25 11:33 | Emergency Department Report ---
Blank Doc - Documentation Documentation: 35-year-old male that presents with generalized abdominal pain with nausea vom iting. 1- This initial assessment/diagnostic orders/clinical plan/ treatment(s) is/are subject to change based on pt's health status, clinical progression and re- assessment by fellow clinical providers in the ED. Further treatment and workup at subsequent clinical provers discretion. Patient/guardians urged not to elope from ED as their condition may be serious if not clinically assessed and germania ged. 2-labs 3-UA
--- NOTE | 2020-12-25 11:57 | Emergency Department Report ---
ED General Adult HPI - General Chief complaint: Abdominal Pain Stated complaint: BOWEL PAINS Time Seen by Provider: 12/25/20 11:23 Source: patient, EMS Mode of arrival: Ambulatory Limitations: No Limitations - History of Present Illness Initial comments: Patient is a 35-year-old male presents emergency department for evaluation of severe crampy intermittent umbilical abdominal pain x3 days associated with nausea without vomiting with mild diarrhea. Patient denies fever or dysuria. - Related Data Previous Rx's Medication Instructions Recorded Last Taken Type Naproxen [Naprosyn TAB] 500 mg PO BID #20 tablet 11/21/16 Unknown Rx methylPREDNISolone [Medrol Dose 8 mg PO QAM #7 tab.ds.pk 11/21/16 Unknown Rx Keanu] ALBUTEROL Inhaler(NF) [VENTOLIN 2 puff IH Q4HR PRN #1 inha 10/26/18 Unknown Rx Inhaler(NF)] Ciprofloxacin HCl [Ciprofloxacin 500 mg PO Q12HR #28 tab 03/14/19 Unknown Rx TAB] Hyoscyamine Subl [Levsin Sl 0.125 0.125 mg SL Q6HR PRN #20 tab 03/14/19 Unknown Rx TAB] metroNIDAZOLE [Flagyl] 500 mg PO BID #28 tab 03/14/19 Unknown Rx Sulfamethoxazole/Trimethoprim 1 each PO BID #14 tablet 06/10/19 Unknown Rx [Bactrim DS TAB] Diclofenac Sodium 75 mg PO BID PRN #14 tablet.dr 07/14/20 Unknown Rx Mupirocin [Bactroban 2% OINT] 1 applic TP TID 7 Days #1 tube 07/14/20 Unknown Rx cephALEXin [Keflex] 500 mg PO Q8HR 7 Days #21 cap 07/14/20 Unknown Rx Allergies Allergy/AdvReac Type Severity Reaction Status Date / Time No Known Allergies Allergy Verified 07/02/15 16:46 ED Review of Systems ROS: Stated complaint: BOWEL PAINS Other details as noted in HPI Comment: All other systems reviewed and negative ED Past Medical Hx - Past Medical History Previous Medical History?: Yes Hx Hypertension: No Hx CVA: No Hx Heart Attack/AMI: No Hx Congestive Heart Failure: No Hx Diabetes: No Hx Deep Vein Thrombosis: No Hx Pulmonary Embolism: No Hx GERD: No Hx Liver Disease: No Hx Renal Disease: No Hx Sickle Cell Disease: No Hx Arthritis: No Hx Headaches / Migraines: No Hx Seizures: No Hx Psychiatric Treatment: Yes (bipolar) Hx Asthma: No Hx Tuberculosis: No Hx Dementia: No Hx HIV: No Additional medical history: Psych hx. - Surgical History Past Surgical History?: Yes Hx Coronary Stent: No Hx Open Heart Surgery: No Hx Internal Defibrillator: No Hx Cholecystectomy: No Hx Appendectomy: No Additional Surgical History: neck - Social History Smoking Status: Current Every Day Smoker Substance Use Type: None - Medications Home Medications: Home Medications Medication Instructions Recorded Confirmed Last Taken Type Naproxen [Naprosyn TAB] 500 mg PO BID #20 tablet 11/21/16 Unknown Rx methylPREDNISolone [Medrol Dose 8 mg PO QAM #7 tab.ds.pk 11/21/16 Unknown Rx Keanu] ALBUTEROL Inhaler(NF) [VENTOLIN 2 puff IH Q4HR PRN #1 inha 10/26/18 Unknown Rx Inhaler(NF)] Ciprofloxacin HCl [Ciprofloxacin 500 mg PO Q12HR #28 tab 03/14/19 Unknown Rx TAB] Hyoscyamine Subl [Levsin Sl 0.125 0.125 mg SL Q6HR PRN #20 tab 03/14/19 Unknown Rx TAB] metroNIDAZOLE [Flagyl] 500 mg PO BID #28 tab 03/14/19 Unknown Rx Sulfamethoxazole/Trimethoprim 1 each PO BID #14 tablet 06/10/19 Unknown Rx [Bactrim DS TAB] Diclofenac Sodium 75 mg PO BID PRN #14 tablet.dr 07/14/20 Unknown Rx Mupirocin [Bactroban 2% OINT] 1 applic TP TID 7 Days #1 tube 07/14/20 Unknown Rx cephALEXin [Keflex] 500 mg PO Q8HR 7 Days #21 cap 07/14/20 Unknown Rx ED Physical Exam - General Limitations: No Limitations General appearance: alert, in no apparent distress - Head Head exam: Present: atraumatic, normocephalic - Eye Eye exam: Present: normal appearance - ENT ENT exam: Present: mucous membranes moist - Neck Neck exam: Present: normal inspection - Respiratory Respiratory exam: Present: normal lung sounds bilaterally. Absent: respiratory distress - Cardiovascular Cardiovascular Exam: Present: regular rate, normal rhythm. Absent: systolic murmur, diastolic murmur, rubs, gallop - GI/Abdominal GI/Abdominal exam: Present: soft, tenderness (Severe tenderness to supraumbilical abdomen, questionable small reducible mass) - Rectal Rectal exam: Present: deferred - Extremities Exam Extremities exam: Present: normal inspection - Back Exam Back exam: Present: normal inspection - Neurological Exam Neurological exam: Present: alert, oriented X3 - Psychiatric Psychiatric exam: Present: normal affect, normal mood - Skin Skin exam: Present: warm, dry, intact, normal color. Absent: rash ED Course Vital Signs 12/25/20 12/25/20 12/25/20 11:16 12:05 12:12 Temperature 98.7 F Pulse Rate 61 56 L 52 L Respiratory 18 18 17 Rate Blood Pressure 107/77 142/80 Blood Pressure 142/80 [Right] O2 Sat by Pulse 99 99 98 Oximetry 12/25/20 12:15 Temperature Pulse Rate 52 L Respiratory 19 Rate Blood Pressure 131/84 Blood Pressure [Right] O2 Sat by Pulse 98 Oximetry - Reevaluation(s) Reevaluation #1: 12/25/20 12:04 Patient initially treated with IV normal saline and IV morphine pending CT abdomen pelvis Reevaluation #2: 12/25/20 13:42 Patient given additional IV NS 1 L x 1 Reevaluation #3: 12/25/20 14:36 Patient reevaluated and in no acute distress. Abdomen is soft and nontender. ED Medical Decision Making - Lab Data Result diagrams: 12/25/20 11:57 12/25/20 11:57 Lab Results 12/25/20 12/25/20 12/25/20 Range/Units 11:57 11:57 13:13 WBC 8.5 (4.5-11.0) K/mm3 RBC 4.79 (3.65-5.03) M/mm3 Hgb 14.6 (11.8-15.2) gm/dl Hct 43.3 (35.5-45.6) % MCV 90 (84-94) fl MCH 31 (28-32) pg MCHC 34 (32-34) % RDW 15.5 H (13.2-15.2) % Plt Count 162 (140-440) K/mm3 Lymph % (Auto) 16.1 (13.4-35.0) % [place] % (Auto) 9.8 H (0.0-7.3) % Eos % (Auto) 0.8 (0.0-4.3) % Baso % (Auto) 0.4 (0.0-1.8) % Lymph # (Auto) 1.4 (1.2-5.4) K/mm3 [place] # (Auto) 0.8 (0.0-0.8) K/mm3 Eos # (Auto) 0.1 (0.0-0.4) K/mm3 Baso # (Auto) 0.0 (0.0-0.1) K/mm3 Seg Neutrophils % 72.9 H (40.0-70.0) % Seg Neutrophils # 6.2 (1.8-7.7) K/mm3 Sodium 132 L (137-145) mmol/L Potassium 4.1 (3.6-5.0) mmol/L Chloride 96.3 L (98-107) mmol/L Carbon Dioxide 27 (22-30) mmol/L Anion Gap 13 mmol/L BUN 11 (9-20) mg/dL Creatinine 1.1 (0.8-1.3) mg/dL Estimated GFR > 60 ml/min BUN/Creatinine Ratio 10 % Glucose 101 H (75-100) mg/dL Calcium 9.0 (8.4-10.2) mg/dL Total Bilirubin 0.60 (0.1-1.2) mg/dL AST 16 (5-40) units/L ALT 13 (7-56) units/L Alkaline Phosphatase 73 (35-129) units/L Total Protein 6.8 (6.3-8.2) g/dL Albumin 3.9 (3.9-5) g/dL Albumin/Globulin Ratio 1.3 % Lipase 18 (13-60) units/L Urine Color Yellow (Yellow) Urine Turbidity Clear (Clear) Urine pH 5.0 (5.0-7.0) Ur Specific [place] 1.035 H (1.003-1.030) Urine Protein 30 mg/dl (Negative) mg/dL Urine Glucose (UA) Neg (Negative) mg/dL Urine Ketones 20 (Negative) mg/dL Urine Blood Neg (Negative) Urine Nitrite Neg (Negative) Urine Bilirubin Neg (Negative) Urine Urobilinogen 2.0 (<2.0) mg/dL Ur Leukocyte Esterase Neg (Negative) Urine WBC (Auto) 2.0 (0.0-6.0) /HPF Urine RBC (Auto) 2.0 (0.0-6.0) /HPF U Epithel Cells (Auto) 1.0 (0-13.0) /HPF Urine Mucus 3+ /HPF Vital Signs 12/25/20 12/25/20 12/25/20 11:16 12:05 12:12 Temperature 98.7 F Pulse Rate 61 56 L 52 L Respiratory 18 18 17 Rate Blood Pressure 107/77 142/80 Blood Pressure 142/80 [Right] O2 Sat by Pulse 99 99 98 Oximetry 12/25/20 12:15 Temperature Pulse Rate 52 L Respiratory 19 Rate Blood Pressure 131/84 Blood Pressure [Right] O2 Sat by Pulse 98 Oximetry - Radiology Data Radiology results: report reviewed CT abdomen pelvis: Enteritis per radiology Critical care attestation.: If time is entered above; I have spent that time in minutes in the direct care of this critically ill patient, excluding procedure time. ED Disposition Clinical Impression: Enteritis Disposition: DC-01 TO HOME OR SELFCARE Is pt being admited?: No Condition: Stable Instructions: Viral Gastroenteritis, Adult Referrals: PRIMARY CARE, [Primary Care Provider] - 3-5 Days
[2020-12-25] MEDS ORDERED: MORPHINE 2 MG/1 ML INJ IV ONE (12:02)
[2020-12-25] MEDS ORDERED: SODIUM CHLORIDE 0.9% 1000 ML 1,000 ML IV ONE ×2 (12:04→13:41)
[2020-12-25 12:25] LABS: Basophils % (Auto) 0.4 % (0.0-1.8); Eosinophils # (Auto) 0.1 K/mm3 (0.0-0.4); Eosinophils % (Auto) 0.8 % (0.0-4.3); Hematocrit 43.3 % (35.5-45.6); Hemoglobin 14.6 gm/dl (11.8-15.2); Lymphocytes # (Auto) 1.4 K/mm3 (1.2-5.4); Lymphocytes % (Auto) 16.1 % (13.4-35.0); Mean Corpuscular HGB Conc 34 % (32-34); Mean Corpuscular Volume 90 fl (84-94); Monocytes # (Auto) 0.8 K/mm3 (0.0-0.8); Monocytes % (Auto) 9.8 % (0.0-7.3); Platelet Count 162 K/mm3 (140-440); Red Blood Count 4.79 M/mm3 (3.65-5.03); Red Cell Distribution Width 15.5 % (13.2-15.2)
[2020-12-25 12:38] VITALS: BP 131/84
[2020-12-25 13:23] LABS: Bilirubin,Urine NEG (Negative); Blood,Urine NEG (Negative); Color,Urine Yellow (Yellow); Mucus,Urine 3+ /HPF
[2020-12-25 13:32] LABS: Alanine Aminotransferase 13 units/L (7-56); Albumin 3.9 g/dL (3.9-5); BUN/Creatinine Ratio 10; Blood Urea Nitrogen 11 mg/dL (9-20); Hemolysis Index 4
--- NOTE | 2020-12-25 14:31 | Cat Scan Report ---
CT ABDOMEN AND PELVIS WITH CONTRAST HISTORY: Umbilical pain. COMPARISON: 03/14/2019 TECHNIQUE: Helical CT images of the abdomen and pelvis were obtained following administration of intr avenous contrast. Sagittal and coronal reformatted images were reviewed. All CT scans at this [facility] are performed using CT dose reduction for ALARA by means of automated exposure control. CONTRAST: 100 ml of intravenous contrast administered. FINDINGS: Abdomen/pelvis: There are multiple mid to distal small bowel loops demonstrating moderate circumfere ntial wall thickening. There is moderate ascites throughout the abdomen. No free air or abscess is id entified. No obstruction or pneumatosis is appreciated. This has the appearance of a moderate to [place] re nonspecific enteritis. The appendix and colon are unremarkable. The liver, biliary system, pancreas, spleen, kidneys and adrenal glands are unremarkable. The vascular structures are normal caliber and widely patent. No adenopathy is appreciated. The bladd er is unremarkable. Lungs/bones: The lung bases are clear. Normal heart size. Moderate thoracolumbar scoliosis is noted. IMPRESSION: Findings consistent with a moderate to severe nonspecific enteritis as described. Please correlate wi th the patient's clinical presentation. Signer Name: Juanpablo Meyer Jr, MD Signed: 12/25/2020 2:26 PM Workstation Name: [id number]
== END 2020-12-25 15:31 | disposition home or self-care (01) ==
LOC: ED 10:26
DX: K52.9 Noninfective gastroenteritis and colitis, unspecified (principal); F32.9 Major depressive disorder, single episode, unspecified; F17.200 Nicotine dependence, unspecified, uncomplicated; Z79.899 Other long term (current) drug therapy
CPT/HCPCS: 36415; 74177; 80053; 81001; 83690; 85025; 96361; 96374; 99284; J2270; J7030; Q9967

== ENCOUNTER 2022-06-18 21:45 | Emergency (ER) | payer MEDICARE, MEDICAID | END 2022-06-19 18:53 | disposition left against medical advice (07) | LOC: ED 21:45 | DX: R10.9 Unspecified abdominal pain (principal); Z53.21 Procedure and treatment not carried out due to patient leaving prior to being seen by health care provider ==